=== PATIENT | male | born 2000 | race Two or more races ===

== ENCOUNTER 2022-03-19 19:49 | Emergency (ER) | payer SELFPAY ==
[~2022-03-19] VITALS: Ht 175.3 cm; Wt 90.7 kg
[2022-03-19 20:05] VITALS: BP 123/75
== END 2022-03-20 03:52 | disposition left against medical advice (07) ==
LOC: ER 19:49
DX: S60.451A Superficial foreign body of left index finger, initial encounter (principal); Z53.21 Procedure and treatment not carried out due to patient leaving prior to being seen by health care provider; X58.XXXA Exposure to other specified factors, initial encounter; Y93.89 Activity, other specified; Y92.89 Other specified places as the place of occurrence of the external cause; Y99.8 Other external cause status